=== PATIENT | male | born 1955 | race Caucasian/White ===

== ENCOUNTER 2017-08-30 17:16 | Observation (INO) | payer BC, OTHER ==
[~2017-08-30] VITALS: Ht 165.1 cm; Wt 58.4 kg
[2017-08-30] VITALS (8 sets, daily range): BP systolic 81–143; BP diastolic 65–78; PULSE 49–79; RESP 16–20; TEMP 96.3–97.7; O2SAT 95–99
[~2017-08-30 17:16] MED LIST: MMW SWISH-SWAL
[2017-08-30] MEDS ORDERED: NITROGLYCERIN 0.4 MG SL 25 TABS/BTL SL ONE (17:45)
[2017-08-30] MEDS ORDERED: ASPIRIN 81 MG CHEW TAB PO ONE (17:45)
[2017-08-30] MEDS ORDERED: SODIUM CHLORIDE 0.9% FLUSH 10 ML FLUSH IVF PRN (17:45)
[2017-08-30] MEDS ORDERED: SODIUM CHLORID 0.9% 500 ML INJ 500 ML IV ONE (17:45)
[2017-08-30 18:09] LABS: AUTOMATED NEUTROPHIL # 3.4 TH/MM3 (1.8-7.7); BASOPHIL # 0.1 TH/MM3 (0-0.2); BASOPHIL % 1.2 % (0.0-2.0); EOSINOPHIL # 0.1 TH/MM3 (0-0.4); EOSINOPHIL % 1.1 % (0.0-4.0); HEMATOCRIT 36.8 % (39.0-51.0); HEMOGLOBIN 12.1 GM/DL (13.0-17.0); LYMPH % 30.2 % (9.0-44.0); LYMPHOCYTE # 1.8 TH/MM3 (1.0-4.8); MEAN CELL VOLUME 92.1 FL (80.0-100.0); MEAN CORPUSCULAR HEMOGLOBIN 30.2 PG (27.0-34.0); MEAN CORPUSCULAR HGB CONC 32.7 % (32.0-36.0); MEAN PLATELET VOLUME 7.4 FL (7.0-11.0); MONO % 8.4 % (0.0-8.0); MONOCYTE # 0.5 TH/MM3 (0-0.9); NEUT % 59.1 % (16.0-70.0); PLATELET COUNT 228 TH/MM3 (150-450); RED CELL DISTRIBUTION WIDTH 13.8 % (11.6-17.2); WHITE BLOOD COUNT 5.9 TH/MM3 (4.0-11.0)
[2017-08-30 18:19] LABS: CHLORIDE 108 MEQ/L (98-107); SODIUM (NA) 140 MEQ/L (136-145)
[2017-08-30 18:24] LABS: CALCIUM 8.9 MG/DL (8.5-10.1)
[2017-08-30 18:25] LABS: ALBUMIN 3.4 GM/DL (3.4-5.0); BICARBONATE 28.9 MEQ/L (21.0-32.0); BLOOD UREA NITROGEN 15 MG/DL (7-18); GLUCOSE,RANDOM 82 MG/DL (74-106); MAGNESIUM 2.1 MG/DL (1.5-2.5)
[2017-08-30 18:28] LABS: ALT (GPT) 22 U/L (12-78); AST (GOT) 23 U/L (15-37); CREATININE 0.76 MG/DL (0.60-1.30); GLOMERULAR FILTRATION RATE 105 ML/MIN (>89)
[2017-08-30 18:29] LABS: TOTAL BILIRUBIN ADULT 0.3 MG/DL (0.2-1.0); TOTAL PROTEIN 6.8 GM/DL (6.4-8.2)
[2017-08-30 18:30] LABS: ALKALINE PHOSPHATASE 63 U/L (45-117)
--- NOTE | 2017-08-30 18:31 | PD ---
HPI Chief Complaint: Chest Pain Time Seen by Provider: 17:21 Travel History International Travel<30 days: No Contact w/Intl Traveler<30days: No Traveled to known affect area: No History of Present Illness HPI Is a 61-year-old man presents to the emergency department complaining of chest pain. He reports that he has had burning chest pain on and off for weeks to months, but over the past week or so it has gotten more severe. Today was especially severe and so he came to the emergency department. He is a strong family history of heart disease but he has never had any personal history. No previous stress test or heart evaluations in the past. Never seen a doctor for chest pain. 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 He has recovered well for that over the past year or so. Symptoms do not seem to be clearly exacerbated by exertion, come on and off on their own. Usually last minutes to hours or so, but a more persistent today. History Past Medical History Narrative Medical Thyroid disease History of laryngeal CA Tetanus Vaccination: < 5 Years Influenza Vaccination: No Social History Alcohol Use: No Tobacco Use: No Allergies-Medications (Allergen,Severity, Reaction): Coded Allergies: No Known Allergies (Verified Allergy, Unknown, 08/30/17) Reported Meds & Prescriptions Reported Meds & Active Scripts Active Magic Mouthwash-Diphenhy Formula (Lidocaine/Diphenhydr/Alum/Mg/Simeth) Ml 10 Ml SWISH-SWAL TID 14 Days MAGIC MOUTHWASH CONTAINS 1/3 VISCOUS LIDOCAINE,1/3 MAALOX, AND 1/3 BENADRYL. Review of Systems Except as stated in HPI: all other systems reviewed are Neg Physical Exam Narrative GENERAL: Well-appearing 61-year-old man, no acute distress. SKIN: Focused skin assessment warm/dry. HEAD: Atraumatic. Normocephalic. EYES: Pupils equal and round. No scleral icterus. No injection or drainage. ENT: No nasal bleeding or discharge. Mucous membranes pink and moist. NECK: Trachea midline. No JVD. CARDIOVASCULAR: Regular rate and rhythm. No murmur appreciated. RESPIRATORY: No accessory muscle use. Clear to auscultation. Breath sounds equal bilaterally. GASTROINTESTINAL: Abdomen soft, non-tender, nondistended. Hepatic and splenic margins not palpable. MUSCULOSKELETAL: No obvious deformities. No clubbing. No cyanosis. No edema. NEUROLOGICAL: Awake and alert. No obvious cranial nerve deficits. Motor grossly within normal limits. Normal speech. PSYCHIATRIC: Appropriate mood and affect; insight and judgment normal. Data Data Last Documented VS Vital Signs Date Time Temp Pulse Resp B/P (MAP) Pulse Ox O2 Delivery O2 Flow Rate FiO2 08/30/17 18:45 59 16 86/65 (72) 97 Room Air 08/30/17 17:32 97.7 Orders Orders Electrocardiogram (08/30/17 17:34) Complete Blood Count With Diff (08/30/17 17:34) Comprehensive Metabolic Panel (08/30/17 17:34) Magnesium (Mg) (08/30/17 17:34) Prothrombin Time / Inr (Pt) (08/30/17 17:34) Act Partial Throm Time (Ptt) (08/30/17 17:34) Troponin I (08/30/17 17:34) Lipase (08/30/17 17:34) Ecg Monitoring (08/30/17 17:34) Iv Access Insert/Monitor (08/30/17 17:34) Oximetry (08/30/17 17:34) Oxygen Administration (08/30/17 17:34) Aspirin Chew (Aspirin Chew) (08/30/17 17:45) Sodium Chloride 0.9% Flush (Ns Flush) (08/30/17 17:45) Nitroglycerin Sl (Nitrostat Sl) (08/30/17 17:45) Sodium Chlorid 0.9% 500 Ml Inj (Ns 500 M (08/30/17 17:45) Chest, Pa & Lat (08/30/17 17:34) Place In Observation (08/30/17 19:00) Activity Bed Rest With Brp (08/30/17 19:00) Vital Signs (Adult) Q4H (08/30/17 19:00) Cardiac Rhythm .As Directed (08/30/17 19:00) Notify Dr: Other .PRN (08/30/17 19:00) Notify Parameters (08/30/17 19:00) Diet Heart Healthy (08/30/17 Lunch) Ckmb (Isoenzyme) Profile (08/30/17 19:00) Ckmb (Isoenzyme) Profile (08/30/17 22:00) Troponin I (08/30/17 19:00) Troponin I (08/30/17 22:00) ^ Obtain (08/30/17 19:00) Aspirin (Aspirin) (08/31/17 09:00) Health And Safety Technician / Telemetry YI.[id number] (08/30/17 19:00) Npo After Midnight W/ Po Meds (08/31/17 Breakfast) Admit Order (Ed Use Only) (08/30/17 ) Labs Laboratory Tests Test 08/30/17 18:00 White Blood Count 5.9 TH/MM3 Red Blood Count 4.00 MIL/MM3 Hemoglobin 12.1 GM/DL Hematocrit 36.8 % Mean Corpuscular Volume 92.1 FL Mean Corpuscular Hemoglobin 30.2 PG Mean Corpuscular Hemoglobin Concent 32.7 % Red Cell Distribution Width 13.8 % Platelet Count 228 TH/MM3 Mean Platelet Volume 7.4 FL Neutrophils (%) (Auto) 59.1 % Lymphocytes (%) (Auto) 30.2 % Monocytes (%) (Auto) 8.4 % Eosinophils (%) (Auto) 1.1 % Basophils (%) (Auto) 1.2 % Neutrophils # (Auto) 3.4 TH/MM3 Lymphocytes # (Auto) 1.8 TH/MM3 Monocytes # (Auto) 0.5 TH/MM3 Eosinophils # (Auto) 0.1 TH/MM3 Basophils # (Auto) 0.1 TH/MM3 CBC Comment DIFF FINAL Differential Comment Blood Urea Nitrogen 15 MG/DL Creatinine 0.76 MG/DL Random Glucose 82 MG/DL Total Protein 6.8 GM/DL Albumin 3.4 GM/DL Calcium Level 8.9 MG/DL Magnesium Level 2.1 MG/DL Alkaline Phosphatase 63 U/L Aspartate Amino Transf (AST/SGOT) 23 U/L Alanine Aminotransferase (ALT/SGPT) 22 U/L Total Bilirubin 0.3 MG/DL Sodium Level 140 MEQ/L Potassium Level 4.0 MEQ/L Chloride Level 108 MEQ/L Carbon Dioxide Level 28.9 MEQ/L Anion Gap 3 MEQ/L Estimat Glomerular Filtration Rate 105 ML/MIN Troponin I LESS THAN 0.02 NG/ML Lipase 108 U/L MDM Medical Decision Making Medical Screen Exam Complete: Yes Emergency Medical Condition: Yes Interpretation(s) Review of EKG: Normal sinus rhythm at a rate of 65, leftward axis, 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 LABS: Mild anemia CMP is unremarkable Troponins negative Lipase is normal Coags are pending Chest x-ray is negative. Differential Diagnosis ACS, anxiety, chest wall pain, pancreatitis, other Narrative Course Medical decision making 61-year-old man presents emerged from with chest pain. Symptoms are intermittent, not clearly exertional, but with strong family history and history of tobacco use. Will check labs, chest x-ray, EKG, likely admission to the chest pain center. Physician Communication Physician Communication Spoke with Dr. Maravilla, will place patient in the chest pain center. Diagnosis Primary Impression: Chest pain Admitting Information Admitting Physician Requests: Keyshawn Mccain MD Aug 30, 2017 18:31
--- NOTE | 2017-08-30 18:31 | RADRPT ---
EXAM DATE/TIME: 08/30/2017 18:06 [facility] COMPARISON: Report only CHEST PA & LAT, May 15, 2014, 18:27. INDICATIONS : Chest pain. MEDICAL HISTORY : Carcinoma, laryngeal. SURGICAL HISTORY : Port placement. ENCOUNTER: Initial ACUITY: 1 day PAIN SCORE: 8/10 LOCATION: Bilateral chest FINDINGS: No infiltrate, effusion or pneumothorax demonstrated. Heart size within normal limits. Patient has a right subclavian [id number] catheter which has a small loop in the lower internal ju gular vein but then courses caudal, tip in the superior vena cava. CONCLUSION: No evidence of acute cardiopulmonary disease. Alec Coronado MD on August 30, 2017 at 18:27 Board Certified Radiologist. This report was verified electronically.
[2017-08-30 18:33] LABS: TROPONIN I LESS THAN 0.02 NG/ML (0.02-0.05)
[2017-08-30 19:40] LABS: INTERNATIONAL NORMALIZED RATIO 1.1 RATIO; PROTHROMBIN TIME - PATIENT 11.4 SEC (9.8-11.6)
[2017-08-30 19:44] LABS: TROPONIN I LESS THAN 0.02 NG/ML (0.02-0.05)
[2017-08-31] VITALS: BP 104/64; PULSE 52; RESP 18; TEMP 96.9; O2SAT 98
[2017-08-31 04:00] VITALS: BP 103/58; PULSE 60; RESP 18; TEMP 96.8; O2SAT 98
[2017-08-31 08:00] VITALS: BP 118/85; PULSE 58; RESP 18; TEMP 97.9; O2SAT 97
[2017-08-31 08:05] VITALS: PULSE 51
[2017-08-31] MEDS ORDERED: ASPIRIN 325 MG TAB PO SCH (09:00)
--- NOTE | 2017-08-31 09:06 | HHI.HP ---
[facility] No Primary Care Physician Admission Diagnosis Chest pain Diagnoses: (1) Chest pain Diagnosis: Principal Chief Complaint: Chest burning Travel History International Travel<30 Days: No Contact w/Intl Traveler <30 Da: No Traveled to Known Affected Are: No History of Present Illness 61-year-old male with known history of hypothyroidism, history of laryngeal cancer who presented to the emergency department because of chest discomfort. Patient indicates that for months he has been experiencing a discomfort in his chest where he describes as a burning sensation in the mid part of his chest and then it will start having a stabbing sensation under his ribs and radiating up into his neck. He indicates the pain is 8/10 on a pain scale whenever he gets the pain. He states that the pain is sporadic and nonexertional. It can happen at rest and usually resolves on its own after approximately 4 hours. He denies any nausea, vomiting, diaphoresis, shortness of breath, dyspnea, lightheadedness, dizziness. Patient does have a rather strong family history of heart disease with all Reyna and his family. He has never undergone any cardiac workup. Patient was evaluated by the emergency room physician and recommended chest pain center observation. Review of Systems Cardiovascular: COMPLAINS OF: Chest pain Except as stated in HPI: all other systems reviewed are Neg Past Family Social History Past Medical History Hypothyroidism Laryngeal cancer Restless leg syndrome Past Surgical History Laryngeal cancer surgery Sinus surgery Right ear surgery Right femur fracture surgery Reported Medications Reported Meds & Active Scripts Active Magic Mouthwash-Diphenhy Formula (Lidocaine/Diphenhydr/Alum/Mg/Simeth) Ml 10 Ml SWISH-SWAL TID 14 Days MAGIC MOUTHWASH CONTAINS 1/3 VISCOUS LIDOCAINE,1/3 MAALOX, AND 1/3 BENADRYL. Allergies: Coded Allergies: No Known Allergies (Verified Allergy, Unknown, 08/30/17) Family History Reviewed and patient states that rather significant for all the men in the family having heart disease and stents. Social History Patient quit smoking 2 years ago, prior to that he smoked 4 pack of cigarettes a day since he was 31 years old. Patient denies any alcohol or illicit drugs Physical Exam Vital Signs Vital Signs Date Time Temp Pulse Resp B/P (MAP) Pulse Ox O2 Delivery O2 Flow Rate FiO2 08/31/17 08:00 97.9 58 18 118/85 (96) 97 08/31/17 04:00 96.8 60 18 103/58 (73) 98 08/31/17 00:00 96.9 52 18 104/64 (77) 98 08/30/17 20:16 52 20 84/65 (71) 98 08/30/17 20:10 96.3 60 20 100/67 (78) 97 08/30/17 19:25 49 20 99 08/30/17 19:23 49 18 81/67 (72) 98 Room Air 08/30/17 18:45 59 16 86/65 (72) 97 Room Air 08/30/17 18:30 55 16 112/74 (87) 97 Room Air 08/30/17 18:29 16 08/30/17 18:06 16 99 Room Air 08/30/17 18:06 99 Room Air 08/30/17 17:35 67 16 99 Room Air 08/30/17 17:32 97.7 63 16 108/77 (87) 99 Physical Exam GENERAL: Well-developed, well-nourished, in no acute distress. alert and orientated HEENT: Head is normocephalic without any lesions or masses noted. Facial features are symmetric. Eyes: Pupils equal round reactive to light. Extraocular muscles are intact. Conjunctivae were clear. Oropharyngeal: Pharynx without any erythema edema. Tongue is midline without deviation. Buccal mucosa is moist without any masses or lesions NECK: Supple without any masses. Trachea midline no deviation. No JVD, no bruits are appreciated CARDIAC: Regular rhythm, regular rate. S1/S2 are heard. No murmurs gallops or rubs. LUNGS: Clear to auscultation bilaterally. No wheeze, rhonchi or rales. No use of accessory muscles on inspiration or expiration. ABDOMEN: Soft, nontender. Nondistended. Bowel sounds heard in all 4 quadrants. No organomegaly or masses. Negative rebound, negative guarding EXTREMITIES: No edema, pulses are equal bilaterally. No cyanosis or clubbing NEUROLOGY: Mood and affect appear appropriate. Cranial nerves II through XII grossly intact. Muscle strength 5/5 in upper and lower extremities bilaterally. Deep tendon reflexes are 2+ in upper and lower extremities bilaterally. Laboratory Laboratory Tests Test 08/30/17 18:00 08/30/17 19:15 White Blood Count 5.9 Red Blood Count 4.00 Hemoglobin 12.1 Hematocrit 36.8 Mean Corpuscular Volume 92.1 Mean Corpuscular Hemoglobin 30.2 Mean Corpuscular Hemoglobin Concent 32.7 Red Cell Distribution Width 13.8 Platelet Count 228 Mean Platelet Volume 7.4 Neutrophils (%) (Auto) 59.1 Lymphocytes (%) (Auto) 30.2 Monocytes (%) (Auto) 8.4 Eosinophils (%) (Auto) 1.1 Basophils (%) (Auto) 1.2 Neutrophils # (Auto) 3.4 Lymphocytes # (Auto) 1.8 Monocytes # (Auto) 0.5 Eosinophils # (Auto) 0.1 Basophils # (Auto) 0.1 CBC Comment DIFF FINAL Differential Comment Blood Urea Nitrogen 15 Creatinine 0.76 Random Glucose 82 Total Protein 6.8 Albumin 3.4 Calcium Level 8.9 Magnesium Level 2.1 Alkaline Phosphatase 63 Aspartate Amino Transf (AST/SGOT) 23 Alanine Aminotransferase (ALT/SGPT) 22 Total Bilirubin 0.3 Sodium Level 140 Potassium Level 4.0 Chloride Level 108 Carbon Dioxide Level 28.9 Anion Gap 3 Estimat Glomerular Filtration Rate 105 Troponin I LESS THAN 0.02 LESS THAN 0.02 Lipase 108 Prothrombin Time 11.4 Prothromb Time International Ratio 1.1 Activated Partial Thromboplast Time 29.4 Total Creatine Kinase 69 Result Diagram: 08/30/17 1800 08/30/17 1800 Imaging Last Impressions Chest X-Ray 08/30/17 6904 Signed Impressions: Service Date/Time: Wednesday, August 30, 2017 18:06 - CONCLUSION: No evidence of acute cardiopulmonary disease. Alec Coronado MD Caprini VTE Risk Assessment Caprini VTE Risk Assessment: No/Low Risk (score <= 1) Caprini Risk Assessment Model Point Value = 1 Point Value = 2 Point Value = 3 Point Value = 5 Age 41-60 Minor surgery BMI > 25 kg/m2 Swollen legs Varicose veins or History of unexplained or recurrent spontaneous Oral contraceptives or hormone replacement Sepsis (< 1 month) Serious lung disease, including pneumonia (< 1 month) Abnormal pulmonary function Acute myocardial infarction Congestive heart failure (< 1 month) History of inflammatory bowel disease Medical patient at bed rest Age 61-74 Arthroscopic surgery Major open surgery (> 45 min) Laparoscopic surgery (> 45 min) Malignancy Confined to bed (> 72 hours) Immobilizing plaster cast Central venous access Age >= 75 History of VTE Family history of VTE Factor V Leiden Prothrombin 44512H Lupus anticoagulant Anticardiolipin antibodies Elevated serum homocysteine Heparin-induced thrombocytopenia Other congenital or acquired thrombophilia Stroke (< 1 month) Elective arthroplasty Hip, pelvis, or leg fracture Acute spinal cord injury (< 1 month) Prophylaxis Regimen Total Risk Factor Score Risk Level Prophylaxis Regimen 0-1 Low Early ambulation 2 Moderate Order ONE of the following: *Sequential Compression Device (SCD) *Heparin 5000 units SQ BID 3-4 Higher Order ONE of the following medications: *Heparin 5000 units SQ TID *Enoxaparin/Lovenox 40 mg SQ daily (WT < 150 kg, CrCl > 30 mL/min) *Enoxaparin/Lovenox 30 mg SQ daily (WT < 150 kg, CrCl > 10-29 mL/min) *Enoxaparin/Lovenox 30 mg SQ BID (WT < 150 kg, CrCl > 30 mL/min) AND/OR *Sequential Compression Device (SCD) 5 or more Highest Order ONE of the following medications: *Heparin 5000 units SQ TID (Preferred with Epidurals) *Enoxaparin/Lovenox 40 mg SQ daily (WT < 150 kg, CrCl > 30 mL/min) *Enoxaparin/Lovenox 30 mg SQ daily (WT < 150 kg, CrCl > 10-29 mL/min) *Enoxaparin/Lovenox 30 mg SQ BID (WT < 150 kg, CrCl > 30 mL/min) AND *Sequential Compression Device (SCD) Assessment and Plan Assessment and Plan Chest pain, atypical -Patient with increased risk factors to include age, history of tobacco use, family history of heart disease -Patient has been ruled out for acute coronary event with serial cardiac enzymes that are negative -Serial EKG shows sinus rhythm possible left fascicular block without any changes -Exercise stress test was performed and was normal and did not indicate any signs of ischemia -Continue aspirin, nitroglycerin as needed -Monitor telemetry -Did discuss with the patient and family at bedside that if he is ruled out for cardiac etiology, patient will need to follow-up with primary medical doctor to rule out other etiologies to include GI, pulmonary, musculoskeletal DVT prevention -Low risk, early ambulation Discharge disposition Discharge home in stable condition Activity: Ad viviane. Diet: Healthy heart diet Medication per medication reconciliation Follow-up with primary medical doctor in 1 week Problem Qualifiers (1) Chest pain: Qualified Codes: R07.9 - Chest pain, unspecified Jerry King Aug 31, 2017 09:06
[2017-08-31] MEDS ORDERED: LEVO75TA3 PO (10:35)
[2017-08-31 10:45] LABS: TROPONIN I LESS THAN 0.02 NG/ML (0.02-0.05)
[2017-08-31 12:00] VITALS: BP 125/81; PULSE 78; RESP 18; TEMP 97.5; O2SAT 97
--- NOTE | 2017-08-31 12:32 | TR ---
Date Performed: 08/31/2017 Time Performed: 11:40:41 DOCTOR: Ish Bailey DRUG LIST: CLINICAL HISTORY: REASON FOR TEST: REASON FOR ENDING: Completed Protocol OBSERVATION: Arrhythmia: None Chest Pain: None CONCLUSION: Patient tolerated GERMÁN protocol with Total Exercise Time=5:59 Maximum SI=498 % Max HR Achieved=94.0% Maximum PW=089/90, Testing stopped secondary to goals acheived. During peak exercis e, quick upsloping ST segments. no significant ST depressions. HR and BP appropriate response to exer cise, Recovery period, patient remained asymptomatic, HR and BP returned to baseline COMMENTS: Conclusion: Normal treadmill exercise. No evidence of ischemia.
--- NOTE | 2017-08-31 12:42 | HHI.DCPOC ---
Discharge Care Plan Diagnosis: (1) Chest pain Goals to Promote Your Health * To prevent worsening of your condition and complications * To maintain your health at the optimal level Directions to Meet Your Goals Take your medications as prescribed Follow your dietary instruction Follow activity as directed Keep your appointments as scheduled Take your immunizations and boosters as scheduled If your symptoms worsen call your PCP, if no PCP go to Urgent Care Center or Emergency Room Smoking is Dangerous to Your Health. Avoid second hand smoke Call the 24-hour hour crisis hotline for domestic abuse at Jerry King Aug 31, 2017 12:42
--- NOTE | 2017-08-31 16:30 | EKG ---
Date Performed: 08/30/2017 Time Performed: 17:20:23 PTAGE: 61 years EKG: Sinus rhythm POSSIBLE RIGHT VENTRICULAR CONDUCTION DELAY LEFT ANTERIOR FASCICULAR BLOCK ABNORMAL ECG PREVIOUS TRACING : 07/12/2011 09.43 Since the previous tracing, no significant change noted DOCTOR: Arnulfo Donahue Interpretating Date/Time 08/31/2017 16:27:02
--- NOTE | 2017-08-31 16:30 | EKG ---
Date Performed: 08/31/2017 Time Performed: 08:33:03 PTAGE: 61 years EKG: SINUS BRADYCARDIA LEFT ANTERIOR FASCICULAR BLOCK ABNORMAL ECG PREVIOUS TRACING : 08/30/2017 17.20 Since the previous tracing, no significant change noted DOCTOR: Arnulfo Donahue Interpretating Date/Time 08/31/2017 16:27:10
== END 2017-08-31 13:51 | disposition home or self-care (01) ==
LOC: PHED 17:16 → PHEDA 19:08 → PH3A 20:08
PROVIDERS: ADMIT Hospitalist; ATTEND Hospitalist
DX: R07.9 Chest pain, unspecified (principal); R94.31 Abnormal electrocardiogram [ECG] [EKG]; C32.9 Malignant neoplasm of larynx, unspecified; E03.9 Hypothyroidism, unspecified; G25.81 Restless legs syndrome; Z87.891 Personal history of nicotine dependence; Z92.21 Personal history of antineoplastic chemotherapy; Z92.3 Personal history of irradiation; Z82.49 Family history of ischemic heart disease and other diseases of the circulatory system
CPT/HCPCS: 71046; 80053; 82550; 83690; 83735; 84484; 85025; 85610; 85730; 93005; 93017; 96360; 99285; G0378; J7040